=== PATIENT | female | born 1985 | race Hispanic/Latino ===

== ENCOUNTER 2017-01-21 03:47 | Inpatient (IN) | payer OTHER, MEDICAID ==
[~2017-01-21] VITALS: Ht 144.8 cm; Wt 85.3 kg
[~2017-01-21 03:47] MED LIST: CEPH-512 PO
[2017-01-21] MEDS ORDERED: Lactated Ringer's 1,000 ML IV PRN (07:45)
[2017-01-21] MEDS ORDERED: Carboprost 250 mCg/mL Inj IM PRN ×2 (07:45→15:15)
[2017-01-21] MEDS ORDERED: Oxytocin 30 Units/500 mL LR 30 UNITS in IV Premix 1 EACH IV PRN ×3 (07:45→15:15)
[2017-01-21] MEDS ORDERED: Sodium Chloride LOK Flush 10 mL Syringe IVFLUSH PRN (07:45)
[2017-01-21] MEDS ORDERED: Methylergonovine 0.2 mg/mL Inj IM PRN ×2 (07:45→15:15)
[2017-01-21] MEDS ORDERED: Oxytocin 10 Unit/mL Inj IM PRN ×2 (07:45→15:15)
[2017-01-21] MEDS ORDERED: Hemorrhage Kit, Post Partum XX ONE ×2 (07:45→15:15)
[2017-01-21] MEDS: Lactated Ringer's 1,000 ML IV SCH ×2 (08:52→10:27)
[2017-01-21 09:13] LABS: Mean Corpuscular Hemoglobin 30.6 pg (27.0-35.0); Mean Corpuscular Volume 89.1 fL (81-100)
[2017-01-21] MEDS ORDERED: PREN1TAB87 PO (09:45)
[2017-01-21] MEDS ORDERED: Lactated Ringer's 1,000 ML IV SCH (15:12)
[2017-01-21] MEDS ORDERED: LANOlin HPA 7 Gm Ointment TOPICAL PRN (15:15)
[2017-01-21] MEDS ORDERED: Benzocaine (Dermoplast) 20% 60 Gm Spray TOPICAL PRN (15:15)
[2017-01-21] MEDS ORDERED: Witch Hazel-Glycerin Pads TOPICAL PRN (15:15)
--- NOTE | 2017-01-21 15:45 | HP ---
[address] [address] HISTORY AND PHYSICAL PATIENT: KAY SCHNEIDER : 1985 MR#: [id number] ADMIT: 01/21/2017 JOB ID: [id number] This is a 31-year-old female. She is 3, para 2, at 41 weeks. She presented to [facility] for scheduled induction of labor for post dates. This patient has been routinely following up at our clinic for . During her care, she is a very compliant patient. Her labs showed blood type is O-positive, H and H 38.9/12.7. Varicella nonimmune, rubella immune, RPR negative, HBsAg negative, HIV negative. Her HCV negative. Her one-hour glucose test is 119. Chlamydia/gonorrhea negative. Her GBS test was also negative. She has no known drug allergies. She declined other medical problems. She declines any history of surgery. OBSTETRICAL HISTORY: She had two vaginal deliveries, 2009 and 2011. The 1st baby was 8 pounds 8 ounces. The 2nd one was 8 pounds 2 ounces. Both are normal vaginal delivery. GYNECOLOGIC HISTORY: Not complicated. SOCIAL HISTORY: She is not smoking. She is not drinking alcohol and declined drug usage. PHYSICAL EXAMINATION: She is afebrile. Her blood pressure and pulse in normal range. Cardiac: RR, no murmur. Pulmonary: Bilaterally clear. Abdomen: Soft, . She had no contractions. heart tracing category one. Extremities: Nontender. ASSESSMENT AND PLAN: A 31-year-old female, 3, para 2, at 41 weeks. Admission for induction of labor for post dates. 1. Her cervical examination was 4, 50, -3. We will start her Pitocin induction. 2. The patient can get an epidural for pain if she prefers to. 3. Expect vaginal delivery. 4. GBS negative. No antibiotic prophylaxis needed.
--- NOTE | 2017-01-21 16:06 | OP ---
[address] [address] OPERATIVE REPORT PATIENT: KAY SCHNEIDER : 1985 MR#: [id number] ADMIT: 01/21/2017 JOB ID: [id number] DATE OF SURGERY: 01/21/2017 (delivery) SURGEON: Pat Alejandra procedure: vaginal delivery PREOPERATIVE DIAGNOSIS(ES): full term vaginal delivery POSTOPERATIVE DIAGNOSIS(ES): Vaginal delivery complicated with mild shoulder dystocia DELIVERY NOTE: This is a 31-year-old female. She is 3, para 3 now, admitted today for induction of labor for post dates. Pitocin started after admission. Patient started to have regular contractions. She had occasional late decels, variable decels, but generally her heart tracing was reassuring. I examined her at around 1:00, and she was about 5-6 cm dilated, 80% effaced, and -2, with bulging membrane. AROM performed. Noticed meconium-stained amniotic fluid. Pitocin continued and she progressed to full dilation and started to have urge to push. It was noted she has CRYSTAL position and the patient was instructed to push and she had good effort. There was gradually descent of the , but this descent is generally slower that what I expect for para 2 patient. Eventually, this delivered at CRYSTAL position. After the head delivered with pushing and gentle downward pulling of the infant, there were no signs of delivery for the shoulder. At this time, the patient was instructed to stop pushing. Instructed the nurse to stand on the patient's left side. Then, the Charlie position and the suprapubic pressure was performed. At the same time, gentle downward pulling was applied to the fetus of the head and neck. With the gentle pulling and the suprapubic pressure and the Charlie position there were still no signs of delivery for the anterior shoulder. At this time, instructed nurse to stop the suprapubic pressure I tried to use my right hand to place inside her anterior vagina space and there was very little area I can put my hand to do any maneuver Then, my hand slid to posterior vaginal space area to try to rotate the posterior shoulder clock hooper, which is the infants left shoulder. During this maneuver, it was noticed release of the anterior shoulder which was the 's right shoulder. At same time, instructed patient to start to push again. This time, the anterior shoulder delivered without difficulty. Then, the posterior shoulder delivered without difficulty. The was placed on mother's chest and cord clamped and cut. The infant handed to the waiting food management aide. The head to shoulder delivery time was 30 seconds. Cord blood gas collected and sent. At this time, the cord was very short and was unable to take regular cord blood. Then expectant management was applied for the delivery of the placenta. The placenta delivered with no difficulty completely and also examined. There was three-vessel cord. After the placenta delivered, regular cord blood collected and then the fundal pressure was applied and there was a very small amount of vaginal bleeding. Then, the perineum examined and noticed very small first-degree laceration. This laceration was repaired with 2-0 Vicryl continuously. The patient tolerated the procedure well. All instrument, needles, laps and gauzes counted correct twice. EBL during the procedure was 100 cc. score was 8 and 9. The infant weight was 8 pounds 13 ounces. MTDD
[2017-01-22] MEDS ORDERED: ASCO-294 PO (06:50)
[2017-01-22] MEDS ORDERED: DOCU-41 PO (06:50)
[2017-01-22] MEDS ORDERED: IBUP800T28 PO (06:50)
[2017-01-22] MEDS ORDERED: FERR-83 PO (06:50)
[2017-01-22 07:31] LABS: Mean Corpuscular Volume 89.8 fL (81-100)
--- NOTE | 2017-01-22 07:37 | PCM.DIOB ---
Obstetrical Disch Instruction Dates of Hospitalization Date of Hospital Admission Jan 21, 2017 at 07:21 Providers Admitting Physician: Pat Alejandra MD Primary Care Physician: Pat Alejandra MD Attending Physician: Pat Alejandra MD Diet Discharge Diet: No restrictions Activity Discharge Activity-General: Pelvic Rest for 6 weeks, Balance rest and activity Dressing and Incisional Care Hygiene: May shower, Wash incision with soap & water, NO bathtub, hot tub or whirlpool Additional Instructions Discharge Instructions Continue your vitamin. Please take the iron and vitamin c together for your anemia. Iron can give you constipation so you have also been given a prescription for docusate to keep you regular. Be sure to follow up in 6 weeks at [facility]. Pelvic rest for 6 weeks (nothing per vagina including intercourse, tampons) If you have a fever greater than 100.4, please call [facility]. There is always someone content architect to talk to. If you have an increase in bleeding, call [facility]. If you have a lot of bleeding suddenly, especially if you have symptoms of dizziness & weakness with it, get emergency help. If you start experiencing extreme depression, especially if you feel that you are a danger to yourself or your family, seek emergency help. You have been through a lot -- BE SURE TO TAKE CARE OF YOURSELF. You have been sent home with the following prescriptions: - Colace 100 mg twice a day as needed for constipation. - Ferrous sulfate 325 mg every day. - Vitamin C 500 mg every day. Take with iron. - Ibuprofen 800mg take 1 tab every 8 hours as needed for pain. Take with a meal. Follow-up in 6 weeks with [facility]. Follow Up Plan Follow-up appointment: Weeks (6) Call your provider for: Fever or Chills, Shortness of breath, Heavy vaginal bleeding, Heavy bleeding, Epigastric pain, Excessive constipation, Vaginal discomfort, Red painful breasts, Other (swelling in one leg or painful swelling in your legs) Purnima Coleman DO Jan 22, 2017 07:01
--- NOTE | 2017-01-22 07:44 | PCM.DC.OB ---
Obstetrical Discharge Summary Date of Service Jan 22, 2017 Date of hospital admission Jan 21, 2017 at 07:21 Date of Discharge: Jan 22, 2017 Providers Admitting Physician: Pat Alejandra MD Primary Care Physician: Pat Alejandra MD Attending Physician: Pat Alejandra MD Diagnosis at Time of Discharge A 31-year-old female, 3, para 2 now para 3, at 41 weeks. Admission for induction of labor for post dates. Status post normal spontaneous vaginal delivery on 01/21/2017. Problems: Invasive procedures Vaginal delivery Date of Procedure: Jan 21, 2017 Brief History and Physical: From the history and physical performed on 01/21/17: This is a 31-year-old female. She is 3, para 2, at 41 weeks. She presented to [facility] for scheduled induction of labor for post dates. This patient has been routinely following up at our clinic for . During her care, she is a very compliant patient. Her labs showed blood type is O-positive, H and H 38.9/12.7. Varicella nonimmune, rubella immune, RPR negative, HBsAg negative, HIV negative. Her HCV negative. Her one-hour glucose test is 119. Chlamydia/gonorrhea negative. Her GBS test was also negative. She has no known drug allergies. She declined other medical problems. She declines any history of surgery. Hospital Course: 1. A 31-year-old female, 3, para 2 now para 3, at 41 weeks. Admission for induction of labor for post dates. Status post normal spontaneous vaginal delivery on 01/21/2017. - She had Pitocin for induction. - During labor, there was shoulder dystocia that resolved. She had a first degree laceration, which was repaired. Delivered a female with Apgars 8 and 9, weighing 8 lbs 13 oz. She is . - On day of discharge, her lochia was light to normal. She did not report any pain. She stated that she was feeling well. She did not have fever, abdominal pain, dysuria, or leg pain. She was ambulating without issues. On exam, her lungs were clear to auscultation, heart was a regular rate and rhythm without murmurs, clicks, or gallops. Her uterus was firm and abdomen non-tender. Her legs had mild bilateral pedal edema without tenderness. Ascorbate Calcium (Vitamin C) 500 Mg Tablet 500 MG PO DAILY Prescribed by: PETROS DUARTE DO Docusate Sodium (Colace) 100 Mg Capsule 100 MG PO BID PRN PRN For Constipation Prescribed by: PETROS DUARTE DO Ferrous Sulfate (Ferrous Sulfate) 325 Mg Tablet 325 MG PO DAILY Prescribed by: PETROS DUARTE DO Ibuprofen (Ibuprofen) 800 Mg Tablet 800 MG PO TID PRN PRN For Pain Prescribed by: PETROS DUARTE DO Vit W-Ca,Fe,FA(<1 mg) ( Vitamins) 1 Each Tablet 1 EACH PO DAILY (Reported) Discontinued Medications Cephalexin (Keflex) 500 Mg Capsule 500 MG PO BID Prescribed by: ASHLIE MARQUEZ MD Patient instructions Continue your vitamin. Please take the iron and vitamin c together for your anemia. Iron can give you constipation so you have also been given a prescription for docusate to keep you regular. Be sure to follow up in 6 weeks at [facility]. Pelvic rest for 6 weeks (nothing per vagina including intercourse, tampons) If you have a fever greater than 100.4, please call [facility]. There is always someone clinical rehab liaison to talk to. If you have an increase in bleeding, call [facility]. If you have a lot of bleeding suddenly, especially if you have symptoms of dizziness & weakness with it, get emergency help. If you start experiencing extreme depression, especially if you feel that you are a danger to yourself or your family, seek emergency help. You have been through a lot -- BE SURE TO TAKE CARE OF YOURSELF. You have been sent home with the following prescriptions: - Colace 100 mg twice a day as needed for constipation. - Ferrous sulfate 325 mg every day. - Vitamin C 500 mg every day. Take with iron. - Ibuprofen 800mg take 1 tab every 8 hours as needed for pain. Take with a meal. Follow-up in 6 weeks with [facility]. copies to: Pat Alejandra MD; Pat Alejandra MD, Marissa L DO Jan 22, 2017 07:15
[2017-01-22 09:49] VITALS: BP 95/52; RESP 16
== END 2017-01-22 15:46 | disposition home or self-care (01) | DRG 775 ==
LOC: FBC 07:21
PROVIDERS: ADMIT Obstetrics & Gynecology; ATTEND Obstetrics & Gynecology
PROC: 10E0XZZ Delivery of Products of Conception, External Approach (ICD-10-PCS; principal; 2017-01-21)
PROC: 3E033VJ Introduction of Other Hormone into Peripheral Vein, Percutaneous Approach (ICD-10-PCS; 2017-01-21)
PROC: 10907ZC Drainage of Amniotic Fluid, Therapeutic from Products of Conception, Via Natural or Artificial Opening (ICD-10-PCS; 2017-01-21)
PROC: 0HQ9XZZ Repair Perineum Skin, External Approach (ICD-10-PCS; 2017-01-21)
DX: O66.0 Obstructed labor due to shoulder dystocia (principal); O48.0 Post-term pregnancy; Z3A.41 41 weeks gestation of pregnancy; Z37.0 Single live birth; O77.0 Labor and delivery complicated by meconium in amniotic fluid; O70.0 First degree perineal laceration during delivery